=== PATIENT | male | born 1990 | race Caucasian/White ===

== ENCOUNTER 2018-09-11 01:21 | Emergency (ER) | payer OTHER ==
[~2018-09-11] VITALS: Ht 182.9 cm; Wt 95.3 kg
[2018-09-11 01:28] VITALS: Ht 182.9 cm; Wt 95.3 kg
[2018-09-11 04:41] VITALS: BP 144/77
== END 2018-09-11 04:41 | disposition home or self-care (01) ==
LOC: ED 01:21
DX: S82.861A Displaced Maisonneuve's fracture of right leg, initial encounter for closed fracture (principal); X58.XXXA Exposure to other specified factors, initial encounter; Y93.39 Activity, other involving climbing, rappelling and jumping off; Y92.89 Other specified places as the place of occurrence of the external cause; Y99.8 Other external cause status
CPT/HCPCS: J1885; J3010